=== PATIENT | male | born 1970 | race Caucasian/White ===

== ENCOUNTER 2016-11-08 12:53 | Emergency (ER) | payer MEDICARE, OTHER ==
[2016-11-08 13:00] VITALS: BP 127/63
--- NOTE | 2016-11-08 13:25 | ED Physician Chart ---
Chief Complaint/HPI - Patient Information Date Seen:: 11/08/16 Time Seen:: 13:01 Chief Complaint:: RIGHT WRIST History of Present Illness:: THIS IS A 46 YO MALE WHO INJURED HIMSELF PLAYING THIS AFTERNOON AND SUSTAINED AN INJURED RIGHT WRIST. HE DENIES ALL OTHER INJURIES. HE HAS FRACTURES IN THE PAST WITH MULTIPLE BONE SURGERY. Allergies:: Allergies Allergy/AdvReac Type Severity Reaction Status Date / Time No Known Allergies Allergy Verified 11/08/16 12:59 Vitals:: Vital Signs - 8 hr 11/08/16 11/08/16 12:59 13:05 Temp 97.9 F HR 74 RR 16 BP 127/63 127/63 O2 Sat % 98 Historian:: Patient Review:: Nurse's Note Reviewed Review of Systems - Review of Systems General/Constitutional: No fever, No chills, No weight loss, No weakness, No diaphoresis, No edema, No loss of appetite Skin: No skin lesions, No rash, No bruising Head: No headache, No light-headedness Eyes: No loss of vision, No pain, No diplopia ENT: No earache, No nasal drainage, No sore throat, No tinnitus Neck: No neck pain, No swelling, No thyromegaly, No stiffness, No mass noted Cardio Vascular: No chest pain, No palpitations, No PND, No orthopnea, No edema Pulmonary: No SOB, No cough, No sputum, No wheezing GI: No nausea, No vomiting, No diarrhea, No pain, No melena, No hematochezia, No constipation, No hematemesis G/U: No dysuria, No frequency, No hematuria Musculoskeletal: Bone or joint pain (THE RIGHT WRIST PAIN), No back pain, No muscle pain Endocrine: No polyuria, No polydipsia Psychiatric: No prior psych history, No depression, No anxiety, No suicidal ideation Hematopoietic: No bruising, No lymphadenopathy Allergic/Immuno: No urticaria, No angioedema Neurological: No syncope, No focal symptoms, No weakness, No paresthesia, No headache, No seizure, No dizziness, No confusion, No vertigo Past Medical History - Past Medical History Obtainable: Yes Past Medical History: Other (ANKYLOSING SPONDYLITIS) Family History: None Social History: Smoker, No Alcohol, No Drug Use Surgical History: other (MULTIPLE HIP SURGERIES) Psychiatricy History: None Medication: Reviewed Family Medical History - Family Member Mother Maternal Grandfather History Unknown: Yes Ethnicity: Non- Living Status: Still Living Hx Family Cancer: No Hx Family Hypertension: Yes Hx Family Diabetes: Yes Physical Exam - Physical Examination General/Constitutional: Awake, Well-developed, well-nourished, Alert, No distress, GCS 15, Non-toxic appearing, Ambulatory Head: Atraumatic Eyes: Lids, conjuctiva normal, PERRL, EOMI Skin: Nl inspection, No rash, No skin lesions, No ecchymosis, Well hydrated, No lymphadenopathy ENMT: External ears, nose nl, Nasal exam nl, Lips, teeth, gums nl Neck: Nontender, Full ROM w/o pain, No JVD, No nuchal rigidity, No bruit, No mass, No stridor Respiratory: Nl effort/Exclusion, Clear to Auscultation, No Wheeze/Rhonchi/Rales Cardio Vascular: RRR, No murmur, gallop, rubs, NL S1 S2 GI: No tenderness/rebounding/guarding, No organomegaly, No hernia, Normal BS's, Nondistended, No mass/bruits, No McBurney tenderness : No CVA tenderness Extremities: No tenderness or effusion (RIGHT WRIST IS SWOLLEN AND TENDER.), Full ROM, normal strength in all extremities, No edema, Normal digits & nails Neuro/Psych: Alert/oriented, DTR's symmetric, Normal sensory exam, Normal motor strength, Judgement/insight normal, Mood normal, Normal gait, No focal deficits Misc: normal gait, Normal back, No paraspinal tenderness Labs/Radiology/EKG Results - Radiology Results Results: x-ray of the right wrist = fx of the distal radius ED Septic Shock - . Is Septic Shock (SBP<90, OR Lactate>4 mmol\L) present?: No - <6hrs of presentation: Vital Signs: Vital Signs - 8 hr 11/08/16 11/08/16 12:59 13:05 Temp 97.9 F HR 74 RR 16 BP 127/63 127/63 O2 Sat % 98 Reassessment (Disposition) - Reassessment Reassessment Condition:: Improved - Diagnosis Diagnosis:: fracture distal right radius - Aftercare/Follow up Instructions Aftercare/Follow-Up Instructions:: Counseled pt regarding lab results/diagnosis & need follow up, Refer to Discharge Instructions, Counseled pt & family regarding lab results/diagnosis & need follow up - Patient Disposition Discharge/Transfer:: Home Condition at Disposition:: Improved ED Discharge Plan - Patient Disposition Admit/Discharge/Transfer: PT DISCHARGED HOME Condition at Disposition: Improved Prescriptions: Ibuprofen [Motrin] 600 mg PO TID PRN #10 tab PRN Reason: Pain (Moderate)
--- NOTE | 2016-11-08 16:32 | Diagnostic Imaging Report ---
Right wrist (3 views) HISTORY: Pain, trauma The exam demonstrates mildly displaced, angulated fracture of the distal radius. IMPRESSION: 1. Distal radial fracture
== END 2016-11-08 14:15 | disposition home or self-care (01) ==
LOC: ER 12:53
DX: S52.501A Unspecified fracture of the lower end of right radius, initial encounter for closed fracture (principal); F17.200 Nicotine dependence, unspecified, uncomplicated; X58.XXXA Exposure to other specified factors, initial encounter; Y93.89 Activity, other specified; Y92.89 Other specified places as the place of occurrence of the external cause; Y99.8 Other external cause status
CPT/HCPCS: 99284; 96372; 73110; J1885; Z7502